=== PATIENT | female | born 1950 | race Caucasian/White ===

== ENCOUNTER 2022-04-13 10:25 | Day surgery (SDC) | payer MEDICARE, BC, SELFPAY ==
[2022-04-13] VITALS (11 sets, daily range): BP systolic 118–147; BP diastolic 55–72; PULSE 53–75; RESP 14–18; TEMP 36.4–36.9; O2SAT 97–100; BMI 27.6
[2022-04-13] MEDS: LACTATED RINGERS 1000 ML 1,000 ML 100 ML IV (11:20)
[2022-04-13] MEDS: SODIUM CHLORIDE 0.9 % (FLUSH) 10 ML SYRINGE IVF (11:20)
--- NOTE | 2022-04-13 12:11 | W.ANESCHARGE ---
Anesthesia Charges Start Date/Time Anesthesia Start Date: 04/13/22 Anesthesia Start Time: 12:26 Stop Date/Time Anesthesia Stop Date: 04/13/22 Anesthesia Stop Time: 13:09 Summary Emergency: No
[2022-04-13] MEDS: CEFAZOLIN 2 GM INJ IVP (12:35)
--- NOTE | 2022-04-13 12:58 | P.ORPRC_ITS ---
Procedure Note Date of procedure: 04/13/22 Procedure: SURGEON: Maurisio Mendez MD DIRECTOR SUPPLIER QUALITY: Miriam Elizalde PA-C PREOPERATIVE DIAGNOSIS: Left knee medial meniscus tear POSTOPERATIVE DIAGNOSIS: Left knee medial meniscus tear NAME OF OPERATION: Left knee arthroscopic partial medial meniscectomy ANESTHESIA: Spinal ESTIMATED BLOOD LOSS: 0 mL COMPLICATIONS: None SPECIMENS: None DRAINS: None PREOPERATIVE ANTIBIOTICS: Ancef 2 gram INDICATIONS: The patient is a 71-year-old with a history of left knee medial pain. MRI scan is consistent with a medial meniscus tear. Despite appropriate nonoperative management, including activity modification, antiinflammatories, [id number] pain medication, bracing, physical therapy, and injections they continue to have pain and disability. Operative intervention was offered. The risks, benefits and expected outcomes were discussed in detail. These included but were not limited to: Infection, bleeding, injury to blood vessel or nerve, venous thromboembolism. All questions were answered to their satisfaction. PROCEDURE: Spinal anesthesia was administered. The patient was placed supine on the operating room table. The left lower extremity was prepped and draped in the usual sterile fashion. The limb was exsanguinated with the Milo bandage. The pneumatic tourniquet was inflated to 300 mmHg. A standard anterolateral portal was established. The arthroscope was introduced. The working portal was established anteromedially. Diagnostic arthroscopy was performed with findings as follows: The suprapatellar pouch is normal. Articular surface on the patella is normal. Articular surface on the trochlea is normal. The medial gutter is normal. The medial compartment shows diffuse grade 3 change on the medial femoral condyle, grade 2 change on the medial tibial plateau. The medial meniscus has a complex degenerative tear of the posterior horn, into the midbody. This primarily consists of a radial tear at the junction of posterior horn in the midbody from the leading edge, to the capsule. There is some undersurface horizontal cleavage tearing of the posterior horn. The notch shows the ACL to be intact. The lateral compartment shows normal articular cartilage on the lateral femoral condyle and lateral tibial plateau. The lateral meniscus is normal. The lateral gutter is normal. The posterior horn of the medial meniscus was debrided to a stable base using a combination of baskets and shaver through both portals. Unstable chondral flaps on the medial femoral condyle were debrided with the shaver through both portals, taken to a stable base. Arthroscopic instruments were removed, the portal sites were Steri-Stripped closed, the knee was infiltrated with 30 mL of 0.25% Marcaine without epinephrine. A dry dressing was applied, the tourniquet was released. Sponge and needle counts were correct x 2. The patient tolerated the procedure well. There were no apparent complications. They were carefully transferred to the hospital bed and taken to the postanesthesia care unit in satisfactory condition. PLAN: The patient will be discharged to home. They may weightbear as tolerates. Range of motion will be unrestricted. They will follow up in the office next week for a wound check.
[2022-04-13] MEDS: BUPIVACAINE 0.25% 30 ML INJECTION (12:59)
--- NOTE | 2022-04-13 13:11 | W.ANESCHARGE ---
Anesthesia Charges Start Date/Time Anesthesia Start Date: 04/13/22 Anesthesia Start Time: 12:26 Stop Date/Time Anesthesia Stop Date: 04/13/22 Anesthesia Stop Time: 13:09 Summary Emergency: No
== END 2022-04-13 14:38 | disposition home or self-care (01) ==
PROVIDERS: PCP Physician Assistant Medical; Visit Provider Orthopaedic Surgery
PROC: (CPT 29870; principal; 2022-04-13 11:45)
DX: M23.222 Derangement of posterior horn of medial meniscus due to old tear or injury, left knee (principal)
CPT/HCPCS: 29881; 01400; J0690; J2250; J2370; J2400; J2704; J3010; J3490; J7120

== ENCOUNTER 2024-12-11 17:53 | Observation (INO) | payer MEDICARE, BC, SELFPAY ==
[2024-12-11 18:24] VITALS: BP 183/72; PULSE 82; RESP 16; TEMP 36.3; O2SAT 98; BMI 27.4
[2024-12-11 19:19] LABS: Creatinine, Point-of-Care* 1.0 mg/dl (0.6-1.3)
[2024-12-11 19:20] LABS: Hematocrit 43.7 % (33.0-51.0); Hemoglobin* 13.8 gm/dL (12.0-16.0); Immature Granulocytes Abs Auto 0.01 K/uL (0.00-0.30); Immature Granulocytes Pct Auto 0.1 %; Lymphocytes Absolute Auto 2.27 K/uL (0.90-2.90); Mean Corpuscular HGB Conc 32 gm/dL (32-36); Mean Corpuscular Hemoglobin 29 pg (26-34); Mean Corpuscular Volume 92 fL (80-100); RDW Coefficient of Variation % 14.0 % (11.5-15.5); Red Blood Count 4.73 m/uL (4.00-5.20); White Blood Count* 8.05 K/uL (4.50-11.00)
[2024-12-11] MEDS: ASPIRIN 81 MG TAB.CHEW 324 MG PO (19:20)
[2024-12-11 19:23] LABS: Slide Review Reflex No
[2024-12-11 19:33] LABS: Chloride* 106 mmol/L (96-114); Potassium* 4.1 mmol/L (3.6-5.1); Sodium* 141 mmol/L (135-149)
[2024-12-11 19:36] LABS: Anion Gap 10 mEq/L (7-15); Blood Urea Nitrogen* 22 mg/dL (7-30); Calcium* 10.1 mg/dL (8.4-10.6); Carbon Dioxide* 25 mmol/L (20-32); Creatinine* 1.0 mg/dL (0.5-1.5); Est. Creatinine Clearance* 40.22; Estimated Glomerular Filt Rate 60 ml/min; Glucose* 92 mg/dL (60-115)
[2024-12-11 20:10] VITALS: BP 173/77; PULSE 83; RESP 16; O2SAT 97
[2024-12-11 20:42] VITALS: BP 179/82; PULSE 79; RESP 16; TEMP 36.4; O2SAT 99; BMI 27.7
[2024-12-11 21:54] VITALS: PULSE 79
[2024-12-11] MEDS: ROSUVASTATIN CALCIUM 10 MG TABLET PO (22:20)
[2024-12-11] MEDS: SODIUM CHLORIDE 0.9 % (FLUSH) 10 ML SYRINGE 5 ML IVF (22:21)
[2024-12-11] MEDS: ENOXAPARIN 40 MG/0.4 ML INJ SUBCUT (22:21)
[2024-12-11 22:51] VITALS: RESP 16; O2SAT 99
[2024-12-11 23:00] VITALS: BP 141/69; PULSE 72; PULSE 73; PULSE 79; RESP 16; TEMP 36.4; O2SAT 98
[2024-12-12 03:00] VITALS: BP 117/58; PULSE 80; RESP 18; TEMP 36.8; O2SAT 99
[2024-12-12] MEDS: LEVOTHYROXINE 75 MCG TABLET PO (05:57)
[2024-12-12 06:43] LABS: Cholesterol* 153 mg/dL (90-199)
[2024-12-12 06:44] LABS: HDL Cholesterol* 69 mg/dL (>=50); Triglycerides* 114 mg/dL (40-149)
[2024-12-12 07:00] VITALS: BP 160/76; PULSE 71; RESP 18; TEMP 36.6; O2SAT 97
[2024-12-12 07:30] VITALS: PULSE 64
[2024-12-12] MEDS: ASPIRIN 81 MG TABLET EC PO (08:07)
[2024-12-12 10:35] VITALS: BP 170/75; PULSE 79; RESP 18; TEMP 36.7; O2SAT 100
[2024-12-12] MEDS: CLOPIDOGREL 75 MG TABLET PO (14:34)
[2024-12-12] MEDS: SODIUM CHLORIDE 0.9 % (FLUSH) 10 ML SYRINGE 5 ML IVF (14:35)
== END 2024-12-12 16:15 | disposition home or self-care (01) ==
LOC: ED 19:09 → MEDSURG 20:21
PROVIDERS: Admitting Provider Internal Medicine; Emergency Provider Emergency Medicine; PCP Physician Assistant Medical; Visit Provider Internal Medicine
DX: G45.9 Transient cerebral ischemic attack, unspecified (principal); R53.1 Weakness; R20.0 Anesthesia of skin; G47.00 Insomnia, unspecified; E04.1 Nontoxic single thyroid nodule; M85.80 Other specified disorders of bone density and structure, unspecified site; E78.5 Hyperlipidemia, unspecified
CPT/HCPCS: 36415; 70450; 70496; 70498; 70551; 80048; 80061; 82565; 84443; 85025; 93005; 93246; 93306; 93970; 96372; 96374; 97112; 97161; 97165; 99284; 99285; A9270; G0378; J1650; Q9967